=== PATIENT | male | born 1955 | race Caucasian/White ===

== ENCOUNTER → 2018-10-01 | Outpatient (CLI) | payer MEDICARE ==
--- NOTE | 2018-10-01 15:54 | XR ---
EXAMINATION TYPE: XR chest 2V DATE OF EXAM: 10/01/2018 COMPARISON: NONE HISTORY: Cough TECHNIQUE: Frontal and lateral views of the chest are obtained. FINDINGS: There is increased attenuation at the left lung base. No pneumothorax or evident effusion. Heart size is thought to be within normal limits accounting for rotation. The aorta is dense. IMPRESSION: Findings suggest left lower lobe pneumonia. Follow-up recommended. A Yellow level critical message alert has been initiated for Marcus Andrade DO via the [employer] Critical Results System on 10/01/2018 3:51 PM. This message alert has been sent to Marcus Andrade DO via the preferences provided by the clinician for the receipt of Radiology Critical Findings. Message ID [id number].
== END | disposition home or self-care (01) ==
LOC: RADXRMAIN 15:20
PROVIDERS: ATTEND Family Medicine
DX: J18.9 Pneumonia, unspecified organism (principal)
CPT/HCPCS: 71046

== ENCOUNTER → 2018-10-11 | Outpatient (CLI) | payer MEDICARE ==
--- NOTE | 2018-10-11 12:22 | XR ---
EXAMINATION TYPE: XR chest 2V DATE OF EXAM: 10/11/2018 COMPARISON: 10/01/2018 TECHNIQUE: PA and lateral views submitted. HISTORY: Cough FINDINGS: The lungs are clear and there is no pneumothorax, pleural effusion, or focal pneumonia. Hypertrophi c and degenerative change of the spine. IMPRESSION: 1. No acute process.
== END | disposition home or self-care (01) ==
LOC: RADXRMAIN 11:58
PROVIDERS: ATTEND Family Medicine
DX: J15.9 Unspecified bacterial pneumonia (principal)
CPT/HCPCS: 71046

== ENCOUNTER → 2020-11-20 | Outpatient (CLI) | payer MEDICARE ==
--- NOTE | 2020-11-20 16:00 | XR ---
EXAMINATION TYPE: XR chest 2V DATE OF EXAM: 11/20/2020 COMPARISON: NONE TECHNIQUE: PA and lateral views submitted. HISTORY: cough FINDINGS: The lungs are clear and there is no pneumothorax, pleural effusion, or focal pneumonia. IMPRESSION: 1. No acute process.
== END | disposition home or self-care (01) ==
LOC: RADXRMAIN 14:03
PROVIDERS: ATTEND Family Medicine
DX: R05 Cough (principal)
CPT/HCPCS: 71046

== ENCOUNTER → 2022-11-11 | Outpatient (CLI) | payer MEDICARE, BC ==
--- NOTE | 2022-11-11 13:10 | US ---
EXAMINATION TYPE: US venous doppler duplex LE BI DATE OF EXAM: 11/11/2022 1:00 PM COMPARISON: NONE CLINICAL INDICATION: Male, 67 years old with history of I82.409 DVT UNSPECIFIED; pain in right calf, no swelling, patient has history of left leg dvt, is on thinners SIDE PERFORMED: Bilateral TECHNIQUE: The lower extremity deep venous system is examined utilizing real time linear array sonog juvenal with graded compression, doppler sonography and color-flow sonography. VESSELS IMAGED: Common Femoral Vein Deep Femoral Vein Greater Saphenous Vein * Femoral Vein Popliteal Vein Small Saphenous Vein * Proximal Calf Veins (* superficial vessels) Right Leg: Negative for DVT Left Leg: Negative for acute DVT, chronic process seen within dist FV and popiteal vein with not ful ly compressible vessel. great color flow *office called and told of negative findings IMPRESSION: No evidence for acute DVT. Chronic DVT suggested.
== END | disposition home or self-care (01) ==
LOC: RADUSWWP 12:32
PROVIDERS: ATTEND Family Medicine
DX: I82.402 Acute embolism and thrombosis of unspecified deep veins of left lower extremity (principal)
CPT/HCPCS: 93970

== ENCOUNTER → 2023-12-08 | Outpatient (CLI) | payer BC, MEDICARE ==
--- NOTE | 2023-12-08 12:10 | MR ---
EXAMINATION TYPE: MR shoulder RT wo con DATE OF EXAM: 12/08/2023 COMPARISON: 12/06/2023 x-ray HISTORY: Rt shoulder pain TECHNIQUE: Multiplanar, multisequence imaging of the right shoulder is performed without contrast. FINDINGS: Rotator Cuff: There is abnormal signal within the anterior fibers of the infraspinatus tendon measuri ng 4 x 5 mm compatible with a partial bursal surface tear and adjacent tendinosis. Subscapularis has a normal appearance. There is mild increased signal near the insertion of the supraspinatus tendon compatible tendinosis. Acromioclavicular Joint: Moderate acromioclavicular hypertrophic arthropathy. Minimal mass effect upo n the rotator cuff. Glenohumeral Joint: Glenohumeral joint maintained. No sizable joint effusion. The glenohumeral ligame nts intact. Labrum: The labrum appears grossly intact given limitation of non-arthrogram study. Biceps Tendon: The long head of biceps is in normal location within bicipital groove. Bone marrow signal: Reactive marrow changes at the level of the AC joint is likely post arthropathy. Punctate tiny cyst in the humeral head. IMPRESSION: 1. Partial tear anterior fibers infraspinatus tendon at the level of the conjoined tendon and the pos terior fibers of the supraspinatus measuring 4 x 5 mm. No through thickness tear or retraction. 2. Tendinosis distal supraspinatus tendon. No through thickness tear.
== END | disposition home or self-care (01) ==
LOC: RADMRIMAIN 11:00
PROVIDERS: ATTEND Orthopaedic Surgery
DX: M67.813 Other specified disorders of tendon, right shoulder (principal); M75.111 Incomplete rotator cuff tear or rupture of right shoulder, not specified as traumatic

== ENCOUNTER 2024-01-25 05:35 | Day surgery (SDC) | payer BC, MEDICARE ==
--- NOTE | 2024-01-25 00:10 | HP ---
HISTORY AND PHYSICAL DATE OF SURGERY: 01/25/2024. HISTORY OF PRESENT ILLNESS: Jaime Jurado is a 68-year-old gentleman seen with progressive right shoulder pain. We discussed options. He elected to proceed with right shoulder arthroscopy. Consent regarding the procedure was obtained. Medical clearance by Dr. Marcus Andrade. PAST MEDICAL HISTORY: Hypertension. SURGICAL HISTORY: Lumbar spine surgery. DAILY MEDICATIONS: 1. Naprosyn. 2. Amlodipine. ALLERGIES: Codeine, Demerol, fentanyl, and morphine. SOCIAL HISTORY: Denies tobacco use. PHYSICAL EVALUATION OF THE RIGHT SHOULDER: Flexion is 110 degrees. Abduction is 90 degrees. External rotation is 30 degrees with pain and weakness. Tenderness along the anterolateral acromion, rotator cuff insertion site. Impingement is positive at 80 degrees. Drop-arm sign is positive. Distal neurovascular exam is intact. IMAGING DATA: Radiographs of the right shoulder, type 2 acromion, acromioclavicular joint osteoarthritis, cystic changes of the tuberosity. MRI right shoulder, rotator cuff tear, acromioclavicular joint osteoarthritis. IMPRESSION: 1. Right shoulder impingement with rotator cuff tear. 2. Right shoulder acromioclavicular joint osteoarthritis. 3. Right shoulder bicipital tendinitis. 4. Hypertension. PLAN: Right shoulder arthroscopy with subacromial decompression, rotator cuff repair, Michael, biceps tenodesis, and debridement. MMODL / IJN: [id number] /
[2024-01-25] MEDS: IV FLUID CONTINUATION 1,000 ML IV ONE (06:21)
[2024-01-25] MEDS ORDERED: LIDOCAINE 1% (10MG/ML) FOR IV START INTRADERMA PRN (06:32)
[2024-01-25] MEDS ORDERED: droPERidol 5 MG/2 ML VIAL IVP ONE (06:32)
[2024-01-25 07:00] VITALS: RESP 16
[2024-01-25] MEDS: ONDANSETRON 4 MG/2 ML VIAL IVP ONE (07:00)
[2024-01-25] MEDS: DEXAMETHASONE SOD PHOSPHATE 4 MG/ML 1 ML VIAL IV ONE (07:00)
[2024-01-25] MEDS: MIDAZOLAM 2 MG/2 ML VIAL IV ONE (07:02)
[2024-01-25] MEDS ORDERED: MIDAZOLAM 2 MG/2 ML VIAL ONE (07:30)
[2024-01-25] MEDS ORDERED: GLYCOPYRROLATE 0.2 MG/ML 2 ML VIAL ONE (07:30)
[2024-01-25] MEDS ORDERED: KETOROLAC 15 MG/ML 1 ML VIAL ONE (07:30)
[2024-01-25] MEDS ORDERED: NEOSTIGMINE 1 MG/ML 10 ML VIAL ONE (07:30)
[2024-01-25] MEDS ORDERED: PROPOFOL 10 MG/ML 20 ML VIAL IV ONE (07:30)
[2024-01-25] MEDS ORDERED: ROPIVACAINE 5 MG/ML 30 ML VIAL ONE (07:30)
[2024-01-25] MEDS ORDERED: KETAMINE HCL IN 0.9 % NACL 50 MG/5 ML SYRINGE ONE (07:30)
[2024-01-25] MEDS ORDERED: LIDOCAINE 1% INJ 10MG/ML (20 ML MDV) ONE (07:30)
[2024-01-25] MEDS ORDERED: ACETAMINOPHEN IV (For NPO) 1,000 MG/100 ML VIAL ONE (07:30)
[2024-01-25] MEDS ORDERED: ROCURONIUM 10 MG/ML (5 ML VIAL) IV ONE (07:30)
[2024-01-25] MEDS: LACTATED RINGERS 1,000 ML IV SCH (07:32)
[2024-01-25] MEDS: LACTATED RINGERS 1,000 ML IV ONE (08:31)
--- NOTE | 2024-01-25 08:50 | P.OP ---
Date of Procedure: 01/25/24 Preoperative Diagnosis: Right shoulder impingement Postoperative Diagnosis: 1. Right shoulder rotator cuff tear 2. Right shoulder impingement 3. Right shoulder acromioclavicular joint osteoarthritis 4. Right shoulder superficial superior labral tear Procedure(s) Performed: 1. Right shoulder arthroscopic rotator cuff repair 2. Right shoulder arthroscopic subacromial decompression 3. Right shoulder arthroscopic Michael procedure 4. Right shoulder arthroscopic debridement labral tear Implants: 1Arthrex 5.5 swivel lock anchor Anesthesia: GETA, regional (Interscalene block) Surgeon: Ronnie Becker Clinical Nursing Manager #1: Lew Gee Estimated Blood Loss (ml): 7 Pathology: none sent Condition: stable Disposition: PACU Indications for Procedure: 68-year-old patient seen with progressive right shoulder pain. After having treatment options discussed, he elected to proceed with arthroscopy. Operative Findings: See description of procedure Description of Procedure: Patient underwent an interscalene block by department of anesthesia. The patient was then taken to the operative suite. The patient underwent a general anesthetic by the department of anesthesia. The patient was placed into a lateral position and secured. There was appropriate padding of the bony prominence. Right shoulder was then prepped and draped in normal sterile orthopedic fashion. We placed the extremity in 10 pounds of longitudinal traction. A posterior incision was now made for a posterior working portal site. The trocar and cannula were inserted into the glenohumeral joint. Arthroscopy was initiated. Spinal needle was now inserted anteriorly, to ascertain the anterior working portal site. An incision was now made in that area, a trocar was inserted followed by a probe. There was some superficial tearing of the superior labrum. There was mild grade I chondromalacia. The remaining labrum was probed and was found to be stable. The biceps tendon and anchor appeared st able without evidence of hyperemia or tearing. I debrided out the superficial labral tear. I probed the residual labrum and it was stable. Instruments were now removed from the glenohumeral joint. Utilizing the posterior working portal site, the trocar and cannula were inserted into the subacromial space. Arthroscopy initiated. I made an incision 2 fingerbreadths lateral to the acromion. I introduced my trocar followed by my ArthroCare ablator. I now began ablating thick subacromial bursal tissue, which exposed the undersurface of the anterior acromion. There was diminished subacromial space. There was a very prominent anterior acromion. A motorized bur was introduced and a subacromial decompression was performed. I also excised some osteophytes off the inferior aspect of the distal clavicle. The AC joint was visualized and noted to be fairly arthritic. The motorized bur was introduced in the anterior portal site and a Michael procedure was performed without difficulty removing 8 mm of bone off the distal clavicle, decompressing the AC joint nicely. I turned my attention to the rotator cuff. There was a 1.5 cm rotator cuff tear. I debrided the margins getting down to stable tendon tissue. I abraded the footprint with a motorized bur. With the assistance of Danny NEGRETE I passed 3 everted mattress sutures through good bites of rotator cuff tendon. I punched a hole in the air over the footprint for insertion of an anchor. All 6 limbs of suture were passed through the eyelet of an Arthrex 5.5 swivel lock anchor. I placed the eyelet into the preplanned hole, held in position while Danny NEGRETE tensioned all 6 limbs of suture and deployed the anchor with good fixation noted. All residual suture limbs were now clipped. We had good compression of the tendon along the entire footprint. Instruments now removed from the portal sites. All portal sites were approximated with nylon suture. Sterile dressings were applied followed by a shoulder sling. Lew NEGRETE assisted in this complex case. The patient was awakened, transferred to a bed, and taken to recovery in stable condition.
--- NOTE | 2024-01-25 08:59 | P.ANPRN ---
Procedure Note - Anesthesia - Nerve Block Performed Right Interscalene Single Time Out Performed: Yes ([id number]) Date of Procedure: 01/25/24 Procedure Start Time: 07:03 Procedure Stop Time: 07:08 Location of Patient: PreOp Indication: Acute Post-Operative Pain, Requested by Surgeon Specifically requested for management of pain by DrMaximiliano: Ronnie Becker Sedation Type: Sedate with meaningful contact maintained Preparation: Sterile Prep Position: Supine Catheter: None Needle Types: Pajunk Needle Gauge: 21 Ultrasound used to visualize needle placement: Yes Ultrasound used to observe medication spread: Yes Injectate: 0.5% Ropivacaine (see comment for volume) (30cc) Blood Aspirated: No Pain Paresthesia on Injection Noted: No Resistance on Injection: Normal Image Stored and Saved: Yes Events: Uneventful and Well Tolerated
[2024-01-25 09:04] VITALS: TEMP 97.3
[2024-01-25 09:58] VITALS: BP 128/62; PULSE 55
== END 2024-01-25 10:18 | disposition home or self-care (01) ==
LOC: OR 05:35
PROVIDERS: ATTEND Orthopaedic Surgery
CPT/HCPCS: 64415

== ENCOUNTER → 2024-01-29 | Outpatient (CLI) | payer BC, MEDICARE ==
--- NOTE | 2024-01-29 11:35 | US ---
EXAMINATION TYPE: US venous doppler duplex LE LT DATE OF EXAM: 01/29/2024 11:20 AM COMPARISON: NONE CLINICAL INDICATION: Male, 68 years old with history of M79.662 PAIN LT LOWER; R22.42 SWELLING LT LOW ER; Swelling. Hx of DVT. Patient is on eliquis. TECHNIQUE: The lower extremity deep venous system is examined utilizing real time linear array sonog juvenal with graded compression, color doppler sonography, and spectral doppler. SIDE PERFORMED: Left FINDINGS: VESSELS IMAGED: Common Femoral Vein Deep Femoral Vein Greater Saphenous Vein * Femoral Vein Popliteal Vein Small Saphenous Vein * Proximal Calf Veins (* superficial vessels) Left Leg: No evidence of DVT IMPRESSION: No ultrasound evidence for deep venous thrombosis. [facility], , 01/29/2024 11:32 AM
== END | disposition home or self-care (01) ==
LOC: RADUSWWP 10:57
PROVIDERS: ATTEND Orthopaedic Surgery

== ENCOUNTER 2024-06-03 08:23 | Day surgery (SDC) | payer BC, MEDICARE ==
[2024-05-29 12:57] VITALS: BMI 24.3
--- NOTE | 2024-06-03 08:17 | HP ---
HISTORY AND PHYSICAL DATE OF SURGERY: 06/03/2024. HISTORY OF PRESENT ILLNESS: Jaime Jurado is a 69-year-old gentleman, seen with right shoulder adhesive capsulitis. We discussed options. He elected to proceed with manipulation under anesthesia of the right shoulder with steroid injection. Consent regarding that procedure was obtained. PAST MEDICAL HISTORY: Hypertension. SURGICAL HISTORY: Back surgery, shoulder arthroscopy. MEDICATIONS: 1. Naprosyn. 2. Amlodipine. ALLERGIES: Codeine, Demerol, fentanyl, morphine. SOCIAL HISTORY: He denies tobacco use. PHYSICAL EVALUATION OF THE RIGHT SHOULDER: He has previously well-healed arthroscopic portal sites. He flexes to 90 degrees, abducts to 90 degrees. External rotation is 20 degrees with weakness. Tenderness along the anterolateral acromion area. IMAGING STUDIES: Radiographs of the right shoulder revealed a flat anterior acromion. IMPRESSION: 1. Right shoulder adhesive capsulitis. 2. History of right shoulder arthroscopy. 3. Hypertension. PLAN: Manipulation under anesthesia of the right shoulder with steroid injection. MMODL / IJN: [id number] /
[2024-06-03 09:01] VITALS: TEMP 97.7
[2024-06-03] MEDS: LACTATED RINGERS 1,000 ML IV SCH (09:10)
[2024-06-03] MEDS: IV FLUID CONTINUATION 1,000 ML IV ONE (09:11)
[2024-06-03] MEDS: ONDANSETRON 4 MG/2 ML VIAL IVP ONE (09:14)
[2024-06-03] MEDS: DEXAMETHASONE SOD PHOSPHATE 4 MG/ML 1 ML VIAL IV ONE (09:14)
[2024-06-03] MEDS ORDERED: KETOROLAC 15 MG/ML 1 ML VIAL ONE (09:56)
[2024-06-03] MEDS ORDERED: PROPOFOL 10 MG/ML 20 ML VIAL IV ONE (09:56)
[2024-06-03] MEDS ORDERED: LIDOCAINE 1% INJ 10MG/ML (20 ML MDV) ONE (09:56)
[2024-06-03] MEDS: methylPREDNISolone ACETATE 80 MG/ML 1 ML VIAL IM ONE (09:59)
[2024-06-03] MEDS: BUPIVACAINE (PF) 0.25% 30 ML VIAL MISCELLANE ONE (09:59)
[2024-06-03] MEDS: methylPREDNISolone SOD SUCCI 40 MG/ML 1 ML VIAL IM ONE (09:59)
--- NOTE | 2024-06-03 10:06 | P.OP ---
Date of Procedure: 06/03/24 Preoperative Diagnosis: Left shoulder adhesive capsulitis Postoperative Diagnosis: Left shoulder adhesive capsulitis Procedure(s) Performed: Left shoulder manipulation under anesthesia with steroid injection Anesthesia: MAC Surgeon: Ronnie Becker Estimated Blood Loss (ml): 0 Pathology: none sent Condition: stable Disposition: PACU Indications for Procedure: 69-year-old gentleman seen with persistent left shoulder adhesive capsulitis. After discussing treatment options, he elected to proceed with manipulation under anesthesia with steroid injection. Operative Findings: See description of procedure Description of Procedure: Patient was taken to a monitored anesthesia area. The patient underwent IV sedation by the department of anesthesia. Once sufficient anesthesia was noted I performed a manipulation of the left shoulder achieving near full range of motion with audible tearing of the adhesions. The anterior aspect of the left shoulder was prepped and draped in a normal sterile orthopedic fashion. I injected a solution of 1 cc Depo-Medrol and 2 cc quarter percent plain Marcaine intra-articular joint left shoulder under sterile technique. A sterile Band-Aid was applied. The patient was again taken through full range of motion. The patient was awakened having tolerated the procedure well.
[2024-06-03 10:57] VITALS: RESP 18
[2024-06-03 11:27] VITALS: BP 133/70; PULSE 74
== END 2024-06-03 11:41 | disposition home or self-care (01) ==
LOC: OR 08:23
PROVIDERS: ATTEND Orthopaedic Surgery
DX: M75.02 Adhesive capsulitis of left shoulder (principal); I10 Essential (primary) hypertension; Z88.5 Allergy status to narcotic agent
CPT/HCPCS: 20610; 23700; J1100; J2405; J2003; J1885; J2704; J0665; J1010

== ENCOUNTER → 2024-07-26 | Outpatient (CLI) | payer BC, MEDICARE ==
--- NOTE | 2024-07-27 21:27 | MR ---
EXAMINATION TYPE: MR shoulder RT wo con DATE OF EXAM: 07/26/2024 1:47 PM COMPARISON: Prior MRI December 08, 2023 . Prior outside x-ray July 23, 2024 CLINICAL INDICATION: Male, 69 years old with history of M25.511 PAIN IN RIGHT SHOULDER, Right shoulde r pain, decreased ROM, hx surgery Jan 2024. IV Contrast: cc (None if empty) TECHNIQUE: Multiplanar, multisequence imaging of the right shoulder is performed without contrast. FINDINGS: Rotator Cuff: New susceptibility artifact from surgical change in the lateral aspect of the humeral h ead. Heterogeneous increased T2 signal involving the lateral posterior aspect of the humeral head. So me increased signal in the distal infraspinatus tendon is redemonstrated. There is more prominent het erogeneity and increased signal in the supraspinatus tendon and some increased T2 signal in the dista l muscle bulk. More prominent fluid along the bursal surface is noted. Intact subscapularis tendon. R otator cuff muscle bulk is preserved. Acromioclavicular Joint: Interval resection of the distal clavicle. Glenohumeral Joint: More prominent small to moderate size joint effusion. Narrowing is again seen. No significant spurring. Labrum: More prominent heterogeneous increased signal of the superior labrum on current study. Biceps Tendon: The long head of biceps is in normal location within bicipital groove. Bone marrow signal: New heterogeneous increased T2 signal involving posterior and lateral aspect of t he humeral head. Other: No additional significant abnormality is appreciated. IMPRESSION: 1. Interval rotator cuff tendon surgery with persistent tendinosis of the distal infraspinatus tendon . More prominent tendinosis of the supraspinatus tendon is present. 2. More prominent superior labral tear. 3. Interval resection of the distal clavicle. 4. More prominent glenohumeral joint arthropathy and new abnormal bone marrow edema posterior lateral aspect of the humeral head. [facility], , 07/27/2024 9:25 PM
== END | disposition home or self-care (01) ==
LOC: RADMRIMAIN 13:07
PROVIDERS: ATTEND Orthopaedic Surgery
DX: S43.431A Superior glenoid labrum lesion of right shoulder, initial encounter (principal); M67.813 Other specified disorders of tendon, right shoulder; M19.011 Primary osteoarthritis, right shoulder; R60.9 Edema, unspecified; X58.XXXA Exposure to other specified factors, initial encounter